=== PATIENT | female | born 1950 | race Caucasian/White ===

== ENCOUNTER 2017-03-15 16:18 | Emergency (ER) | payer MEDICARE, OTHER | END 2017-03-15 19:02 | disposition home or self-care (01) | LOC: FER 16:18 | DX: M54.31 Sciatica, right side (principal); E03.9 Hypothyroidism, unspecified; G89.29 Other chronic pain; M54.9 Dorsalgia, unspecified; Z79.899 Other long term (current) drug therapy | CPT/HCPCS: 72072; 72110; 99283 ==

== ENCOUNTER → 2021-06-27 | Day surgery (SDC) | payer MEDICARE, OTHER ==
[~2021-06-27] VITALS: Ht 169.9 cm; Wt 60.3 kg
[~2021-06-27] MED LIST: BACLOFEN 10MG T10 MG PO; BACLOFEN10 MG PO; BIOTIN5000 MCG PO; BUPROPION XL300 MG PO; CALCIUM600 MG PO; CERTAGEN1 EACH PO; CRESTOR5 M1 PO; ESZOPICLONE1 MG PO; FOLIC ACID0.8 MG PO; FORTEO2.4 ML SC; IRON18 MG PO; LEVO-T137 MCG PO; MAGNESIUM500 MG PO; NEURONTIN400 MG PO; PERCOCET 5-3251 EACH PO; PREGABALIN150 MG PO; PROLIA60 MG/1 ML IM; TRAZODONE 50MG50 MG PO; VITAMIN C1000 MG PO; VITAMIN D35000 UNIT PO; XARELTO10 MG PO
[2021-06-27 09:33] LABS: HCT 35.6 % (37.0-47.0); HGB 11.8 g/dl (12.5-16.0); MCHC 33.1 g/dL (32.0-36.0); MCV 96.5 fL (78.0-100.0); MPV 10.3 fL (6.0-9.5); RBC 3.69 M/uL (4.20-5.40); RDW 13.2 % (11.5-14.0); WBC 10.3 K/uL (4.0-10.5)
[2021-06-27 09:56] LABS: ALBUMIN 4.1 g/dL (3.4-5.0); BILIRUBIN - TOTAL 0.4 mg/dL (0.2-1.0); BUN/CREAT RATIO (CALC) 43.6 RATIO; CREATININE 1.1 mg/dL (0.51-0.95); GLOBULIN (CALCULATION) 3.6 g/dL; POTASSIUM 3.8 mmol/L (3.5-5.1); TOTAL PROTEIN 7.7 g/dL (6.4-8.2)
== END | disposition home or self-care (01) ==
LOC: FAS 08:03
PROVIDERS: Surgery
DX: Z12.11 Encounter for screening for malignant neoplasm of colon (principal); K64.4 Residual hemorrhoidal skin tags; E03.9 Hypothyroidism, unspecified; M19.90 Unspecified osteoarthritis, unspecified site; Z80.0 Family history of malignant neoplasm of digestive organs; Z79.899 Other long term (current) drug therapy; Z20.822 Contact with and (suspected) exposure to COVID-19
CPT/HCPCS: 36415; 80053; J0690; J2704; J7120; U0002

== ENCOUNTER 2022-03-19 10:57 | Emergency (ER) | payer MEDICARE, OTHER | END 2022-03-19 12:33 | disposition home or self-care (01) | LOC: FER 10:57 | DX: S62.015A Nondisplaced fracture of distal pole of navicular [scaphoid] bone of left wrist, initial encounter for closed fracture (principal); W18.30XA Fall on same level, unspecified, initial encounter | CPT/HCPCS: 73110 ==

== ENCOUNTER → 2022-07-08 | Day surgery (SDC) | payer MEDICARE, OTHER ==
[~2022-07-08] VITALS: Ht 170 cm; Wt 68.0 kg
[~2022-07-08] MED LIST changes: +ESTROGEN CREAM; +FOSAMAX70 MG PO; +LINZESS72 MCG PO; +MYRBETRIQ50 MG PO; +OXYTOCIN; +PLAVIX75 MG PO
== END | disposition home or self-care (01) ==
LOC: FAS 10:35
DX: Z12.31 Encounter for screening mammogram for malignant neoplasm of breast (principal); K52.9 Noninfective gastroenteritis and colitis, unspecified; K63.5 Polyp of colon; Z91.89 Other specified personal risk factors, not elsewhere classified; Z79.02 Long term (current) use of antithrombotics/antiplatelets; Z80.0 Family history of malignant neoplasm of digestive organs; Z87.891 Personal history of nicotine dependence
CPT/HCPCS: J1610; J2250; J2704; J7120